=== PATIENT | female | born 1990 | race Caucasian/White ===

== ENCOUNTER 2016-10-27 16:13 | Emergency (ER) | payer OTHER ==
[~2016-10-27] VITALS: Ht 160 cm; Wt 65.1 kg
[2016-10-27 16:21] VITALS: TEMP 36.7; Ht 160 cm; Wt 65.1 kg
[2016-10-27] MEDS ORDERED: ESCI1TAB10 PO (16:28)
[2016-10-27] MEDS ORDERED: ZNTT/150 PO (16:28)
[2016-10-27] MEDS ORDERED: PANTOprazole INJ 40 MG in SYRINGE 0 ML IV ONE (17:00)
[2016-10-27] MEDS ORDERED: GI COCKTAIL PO ONE (17:00)
[2016-10-27] MEDS ORDERED: SODIUM CHLORIDE 0.9% 1000ML 1,000 ML IV ONE (17:00)
[2016-10-27] MEDS ORDERED: ALUMINUM/MAGNESIUM SUSP 30 ML UDC ONE (17:16)
[2016-10-27] MEDS ORDERED: LIDOCAINE HCL 2% VISC SOLN 20 ML UDC ONE (17:16)
[2016-10-27 17:24] LABS: BASO % 0.2 %; BASO ABS # 0.01 K/uL (0-0.2); COMPLETE YES; EOS % 4.4 %; HEMATOCRIT 40.5 % (37-47); LYMPH % 33.9 %; LYMPH ABS # 1.68 K/uL (1.2-3.4); MEAN CELL VOLUME 93.3 fL (80-100); MEAN CORPUSCULAR HEMOGLOBIN 32.3 pg (25-34); MEAN CORPUSCULAR HGB CONC 34.6 g/dl (32-36); MEAN PLATELET VOLUME 11.3 fL (7.4-10.4); MONO % 11.1 %; NEUT % 50.4 %; PLATELET COUNT 138 K/uL (130-400); RED BLOOD COUNT 4.34 M/uL (4.2-5.4); WHITE BLOOD COUNT 4.95 K/uL (4.8-10.8)
[2016-10-27 17:43] LABS: BUN/CREATININE RATIO 23.5 (10-20); CREATININE 0.84 mg/dl (0.60-1.20); MAGNESIUM 2.3 mg/dl (1.8-2.4); POTASSIUM 3.5 mmol/L (3.5-5.1)
[2016-10-27 17:54] LABS: ALB/GLOB RATIO 1.3 (0.9-2); THYROID STIMULATING HORMONE 1.02 uIu/ml (0.300-4.500)
--- NOTE | 2016-10-27 18:09 | DIAGNOSTIC IMAGING REPORT ---
ABDOMEN 2VIEW W/PA CHEST RTN CLINICAL HISTORY: Epigastric and left upper quadrant abdominal pain COMPARISON STUDY: Chest x-ray dated 03/11/2006 FINDINGS: The erect chest reveals no evidence of free intraperitoneal air. There is no focal pulmonary consolidation. Erect and supine views the abdomen reveal scattered air-fluid levels. There are no abnormally dilated loops of large or small bowel. There are no transition zones indicate bowel obstruction. There are no calcifications suspicious for renal calculi. IMPRESSION: Scattered air-fluid levels. No evidence of bowel obstruction. No evidence of free air. Electronically signed by: Eros Fowler M.D. 10/27/2016 6:08 PM Dictated Date/Time: 10/27/2016 6:07 PM
[2016-10-27] MEDS ORDERED: PANT40TA PO (19:25)
[2016-10-27 19:40] VITALS: BP 117/76; PULSE 79; O2SAT 100
--- NOTE | 2016-10-28 00:15 | EMERGENCY ROOM VISIT NOTE ---
History First contact with patient: 16:33 Chief Complaint: ABDOMINAL PAIN Stated Complaint: STOMACH PAIN Nursing Triage Summary: Patient presents with a c/c of epigastric pain, intermittent X 1 week. Negativfe nausea/vomiting/diarrhea. Patient comfortable on arrival. History of Present Illness The patient is a 26 year old female who presents to the Emergency Room with complaints of intermittent epigastric abdominal pain for the past week. The patient has not had nausea, vomiting, or diarrhea. No chest pain or shortness of breath. Her pain does not radiate, and does not appear related to food or drink. The patient denies chance of . She has been without fevers or chills. No injury or trauma. No recent travel history. She rates her current discomfort a /10. Review of Systems More than 10 systems were reviewed and otherwise negative with the exception of history of present illness. Past Medical/Surgical History Medical Problems: (1) DEPRESSIVE DISORDER NEC (2) TOBACCO USE DISORDER Family History No pertinent family history Social History Smoking Status: Current Every Day Smoker Current/Historical Medications Scheduled Escitalopram Oxalate (Lexapro), 25 MG PO DAILY Pantoprazole (Protonix), 40 MG PO DAILY Ranitidine (Zantac), 150 MG PO DIRECTED Allergies Coded Allergies: No Known Allergies (Verified , 10/27/16) Physical Exam Vital Signs Date Time Temp Pulse Resp B/P Pulse Ox O2 Delivery O2 Flow Rate FiO2 10/27/16 19:40 79 20 117/76 100 10/27/16 16:21 36.7 71 20 134/82 99 Room Air Pain Rating (0-10): 0 Physical Exam VITALS: Vitals are noted on the nurse's note and reviewed by myself. Vital signs stable. GENERAL: Well-developed, well-nourished, white female, who is in no acute distress and resting comfortably. Patient is cooperative with the examination. HEAD: Normocephalic atraumatic. HEART: Regular rate and rhythm without murmurs gallops or rubs. LUNGS: Clear to auscultation bilaterally without wheezes, rales or rhonchi. No retractions or accessory muscle use. ABDOMEN: Positive normal bowel sounds x 4. Soft, nontender, without masses or organomegaly. No guarding or rebound tenderness. MUSCULOSKELETAL: No muscle atrophy, erythema, or edema noted. Full range of motion without joint tenderness in all extremities. NEURO: Patient was alert and oriented to person place and time. CN II through XII grossly intact. Medical Decision & Procedures ER Provider Diagnostic Interpretation: ABDOMEN 2VIEW W/PA CHEST RTN CLINICAL HISTORY: Epigastric and left upper quadrant abdominal pain COMPARISON STUDY: Chest x-ray dated 03/11/2006 FINDINGS: The erect chest reveals no evidence of free intraperitoneal air. There is no focal pulmonary consolidation. Erect and supine views the abdomen reveal scattered air-fluid levels. There are no abnormally dilated loops of large or small bowel. There are no transition zones indicate bowel obstruction. There are no calcifications suspicious for renal calculi. IMPRESSION: Scattered air-fluid levels. No evidence of bowel obstruction. No evidence of free air Laboratory Results 10/27/16 17:10 Red Blood Count 4.34, Mean Corpuscular Volume 93.3, Mean Corpuscular Hemoglobin 32.3, Mean Corpuscular Hemoglobin Concent 34.6, Mean Platelet Volume 11.3, Neutrophils (%) (Auto) 50.4, Lymphocytes (%) (Auto) 33.9, Monocytes (%) (Auto) 11.1, Eosinophils (%) (Auto) 4.4, Basophils (%) (Auto) 0.2, Neutrophils # (Auto ) 2.49, Lymphocytes # (Auto) 1.68, Monocytes # (Auto) 0.55, Eosinophils # (Auto ) 0.22, Basophils # (Auto) 0.01 10/27/16 17:10 Test 10/27/16 00:00 10/27/16 17:10 Urine Test NEG (NEG) White Blood Count 4.95 K/uL (4.8-10.8) Red Blood Count 4.34 M/uL (4.2-5.4) Hemoglobin 14.0 g/dL (12.0-16.0) Hematocrit 40.5 % (37-47) Mean Corpuscular Volume 93.3 fL (80-100) Mean Corpuscular Hemoglobin 32.3 pg (25-34) Mean Corpuscular Hemoglobin Concent 34.6 g/dl (32-36) Platelet Count 138 K/uL (130-400) Mean Platelet Volume 11.3 fL (7.4-10.4) Neutrophils (%) (Auto) 50.4 % Lymphocytes (%) (Auto) 33.9 % Monocytes (%) (Auto) 11.1 % Eosinophils (%) (Auto) 4.4 % Basophils (%) (Auto) 0.2 % Neutrophils # (Auto) 2.49 K/uL (1.4-6.5) Lymphocytes # (Auto) 1.68 K/uL (1.2-3.4) Monocytes # (Auto) 0.55 K/uL (0.11-0.59) Eosinophils # (Auto) 0.22 K/uL (0-0.5) Basophils # (Auto) 0.01 K/uL (0-0.2) RDW Standard Deviation 44.2 fL (36.4-46.3) RDW Coefficient of Variation 12.9 % (11.5-14.5) Immature Granulocyte % (Auto) 0.0 % Immature Granulocyte # (Auto) 0.00 K/uL (0.00-0.02) Anion Gap 7.0 mmol/L (3-11) Est Creatinine Clear Calc Drug Dose 91.3 ml/min Estimated GFR () 110.4 Estimated GFR (Non- 95.3 BUN/Creatinine Ratio 23.5 (10-20) Calcium Level 10.0 mg/dl (8.5-10.1) Magnesium Level 2.3 mg/dl (1.8-2.4) Total Bilirubin 0.7 mg/dl (0.2-1) Aspartate Amino Transf (AST/SGOT) 21 U/L (15-37) Alanine Aminotransferase (ALT/SGPT) 24 U/L (12-78) Alkaline Phosphatase 68 U/L (45-117) Total Protein 8.1 gm/dl (6.4-8.2) Albumin 4.6 gm/dl (3.4-5.0) Globulin 3.5 gm/dl (2.5-4.0) Albumin/Globulin Ratio 1.3 (0.9-2) Lipase 246 U/L (73-393) Thyroid Stimulating Hormone (TSH) 1.020 uIu/ml (0.300-4.500) Medications Administered Medications (Trade) Dose Ordered Sig/Shubham Route Start Time Stop Time Status Last Admin Dose Admin Sodium Chloride 1,000 ml @ 999 mls/hr Q1H1M ONCE IV 10/27/16 17:00 10/27/16 18:00 DC 10/27/16 17:22 999 MLS/HR Pantoprazole Sodium/Syringe (Protonix Inj/ Syringe) 10 ml @ 5 mls/min NOW ONCE IV 10/27/16 17:00 10/27/16 17:01 DC 10/27/16 17:18 5 MLS/MIN Al Hydroxide/Mg Hydroxide (Maalox Susp) 30 ml STK-MED ONCE .ROUTE 10/27/16 17:16 10/27/16 17:17 DC 10/27/16 17:18 30 ML Lidocaine HCl (Viscous Lidocaine 2% Soln) 20 ml STK-MED ONCE .ROUTE 10/27/16 17:16 10/27/16 17:17 DC 10/27/16 17:18 20 ML ED Course Physical exam and history were performed. Nursing notes and EMR were reviewed. Patient appears to have intermittent epigastric abdominal pain off and on for the past week. On examination the patient does not appear toxic. Her abdomen is soft without significant appreciable tenderness. IV access was established and labs were obtained. Patient was hydrated with normal saline. She was given IV Protonix and a GI cocktail. Plain films were ordered. The patient blood work is as above and was reviewed. She does not have a significantly elevated white blood cell count, gross anemia, bandemia, or significant electrolyte imbalance. Lipase and transaminases were not diagnostic. X-ray does not show significant acute process. On repeat examination the patient did have improvement of her symptoms. She continued without abdominal tenderness while here in the ER. I discussed options of care with the patient, and overall she feels better and would like to be discharged home. I suspect that her symptoms are gastric in origin. I will give her a course of Protonix and instructions to follow with gastroenterology. She was asked to return to the ER anytime with any new, worsening, or worsening symptoms. She voiced understanding and rated her discomfort a 0/10 at the time of departure. The chart was completed utilizing [employer] Voice Recognition Software. Grammatical errors, random word insertions, pronoun errors, and incomplete sentences are an occasional consequence of this system due to software limitations, ambient noise, and hardware issues. Any formal questions or concerns about the content, text, or information contained within the body of this dictation should be directly addressed to the provider for clarification. . Medical Decision Differential diagnosis: Etiologies such as appendicitis, diverticulitis, PUD, biliary pathology, UTI, pancreatitis, obstruction, mesenteric ischemia, aortic pathology, infections, inflammatory bowel disease, renal colic, as well as others were entertained. Impression Primary Impression: Epigastric abdominal pain Departure Information Dispostion Home / Self-Care Condition GOOD Prescriptions Pantoprazole (Protonix) 40 Mg Tab 40 MG PO DAILY for 14 Days, #14 TAB Prov: Lyle Burton PA-C 10/27/16 Referrals Matthew Rivas, DO Forms HOME CARE DOCUMENTATION FORM, IMPORTANT VISIT INFORMATION Patient Instructions My [facility] Additional Instructions You were seen and evaluated today on an emergency basis only. This is not a substitute for, or an effort to provide, complete comprehensive medical care. It is not possible to recognize and treat all injuries or illnesses in a single emergency department visit. For this reason it is recommended that you followup with Gastroenterology, Dr. Rivas's office, with any ongoing or persistent symptoms. Take Protonix 40 mg daily for the next 2 weeks. Drink plenty of fluids and remain well hydrated. You are welcome to return to the emergency department anytime with new, worsening, or concerning symptoms.
== END 2016-10-27 19:41 | disposition home or self-care (01) ==
LOC: C.EDB 16:14
DX: R10.13 Epigastric pain (principal); F32.9 Major depressive disorder, single episode, unspecified; F17.200 Nicotine dependence, unspecified, uncomplicated; Z79.899 Other long term (current) drug therapy